=== PATIENT | female | born 1990 | race African-American/Black ===

== ENCOUNTER 2019-01-05 21:44 | Emergency (ER) | payer MEDICAID ==
[~2019-01-05] VITALS: Ht 165.1 cm; Wt 136.6 kg
[2019-01-05 21:45] VITALS: BP 139/86
--- NOTE | 2019-01-05 22:50 | NUR ---
PT AMBULATING TO XRAY.
--- NOTE | 2019-01-05 23:00 | NUR ---
INITIAL CONTACT WITH PT. ASSESSMENT DONE. XRAY RESULTS PENDING.
--- NOTE | 2019-01-05 23:32 | NUR ---
PT DC'D HOME WITH UNDERSTANDING OF INSTRUCTIONS. PT ESCORTED TO DC DESK, GAIT STEADY.
== END 2019-01-05 23:38 | disposition home or self-care (01) ==
LOC: ED 23:20
DX: R07.89 Other chest pain (principal); F17.200 Nicotine dependence, unspecified, uncomplicated
CPT/HCPCS: 71046; 93005; 99283